=== PATIENT | female | born 1940 | race Caucasian/White ===

== ENCOUNTER 2022-12-18 11:18 | Inpatient (IN) | payer MEDICARE, OTHER ==
[2022-12-18] MEDS ORDERED: Acetaminophen 325 MG TAB PO PRN (17:25)
[2022-12-18] MEDS ORDERED: Ondansetron ODT 4 MG TAB SL PRN (17:35)
[2022-12-18] MEDS ORDERED: oxyCODONE 5 MG TAB PO PRN (17:48)
[2022-12-18] MEDS ORDERED: Nadolol 40 MG TAB PO SCH (21:00)
[2022-12-18] MEDS: Atorvastatin Calcium 10 MG TAB PO SCH (21:04)
[2022-12-18] MEDS: Mirtazapine 15 MG TAB PO PRN (21:04)
[2022-12-18] MEDS: Sertraline 100 MG TAB PO SCH (21:05)
[2022-12-18] MEDS: Famotidine 20 MG TAB PO SCH (21:05)
[2022-12-19 05:14] LABS: #Basophils 0.1 thou/uL (0.0-0.2); #Eosinphils 0.1 thou/uL (0.0-0.7); #Monocytes 0.4 thou/uL (0.11-0.59); #Neutrophils 2.7 thou/uL (1.40-6.50); %Basophils 1.2 % (0.0-1.0); %Eosinophils 2.6 % (0.0-10.0); %Lymphocytes 23.9 % (21.0-51.0); %Monocytes 10.1 % (0.0-10.0); %Neutrophils 62.2 % (42.0-75.0); Hemoglobin 7.2 g/dL (12.0-16.0); Mean Corpuscular HGB CONC 32.7 g/dL (32.0-36.0); Mean Corpuscular Hemoglobin 31.9 pg (27.0-31.0); Mean Corpuscular Volume 97.6 fl (78.0-98.0); Mean Platelet Volume 7.9 fL (7.4-10.4); Platelet Count 167 10x3/uL (130-400); RBC Distribution Width 13.5 % (11.5-14.5); Red Blood Cell (RBC) Count 2.27 mill/uL (4.20-5.40); White Blood Cell (WBC) Count 4.3 10x3/uL (4.8-10.8)
[2022-12-19 05:41] LABS: ALT (SGPT) 38 U/L (8-55); AST (SGOT) 45 U/L (5-34); Albumin 3.1 g/dL (3.4-4.8); Alkaline Phosphatase 68 U/L (40-110); Anion Gap 14 mmol/L (10-20); BUN (Urea Nitrogen) 9 mg/dL (9.8-20.1); Bilirubin, Total 0.4 mg/dL (0.2-1.2); Calc. Creatinine Clearance 54 mL/min (70-130); Calcium 8.7 mg/dL (7.8-10.44); Carbon Dioxide 23 mmol/L (23-31); Chloride 106 mmol/L (98-107); Estimated GFR 86; Globulin 2.3 g/dL (2.4-3.5); Glucose 102 mg/dL (83-110); Potassium 3.9 mmol/L (3.5-5.1); Protein, Total 5.4 g/dL (5.8-8.1); Sodium 139 mmol/L (136-145)
[2022-12-19] MEDS: Levothyroxine Sodium 50 MCG TAB PO SCH (05:55)
[2022-12-19] MEDS: Famotidine 20 MG TAB PO SCH ×2 (07:46→19:54)
[2022-12-19] MEDS: Aspirin 325 MG TAB PO SCH (07:46)
[2022-12-19] MEDS: Nadolol 40 MG TAB PO SCH ×2 (07:54→20:51)
[2022-12-19] MEDS: oxyCODONE 5 MG TAB PO PRN ×2 (09:32→19:52)
[2022-12-19] MEDS: Atorvastatin Calcium 10 MG TAB PO SCH (19:54)
[2022-12-19] MEDS: Mirtazapine 15 MG TAB PO PRN (19:54)
[2022-12-19] MEDS: Sertraline 100 MG TAB PO SCH (19:54)
[2022-12-20] MEDS: Levothyroxine Sodium 50 MCG TAB PO SCH (05:48)
[2022-12-20 06:01] LABS: Mean Corpuscular HGB CONC 31.9 g/dL (32.0-36.0); Mean Corpuscular Hemoglobin 31.5 pg (27.0-31.0); Mean Corpuscular Volume 98.8 fl (78.0-98.0); Platelet Count 251 10x3/uL (130-400); RBC Distribution Width 14.4 % (11.5-14.5); Red Blood Cell (RBC) Count 2.54 mill/uL (4.20-5.40); White Blood Cell (WBC) Count 5.6 10x3/uL (4.8-10.8)
[2022-12-20 06:02] LABS: #Eosinphils 0.2 thou/uL (0.0-0.7); #Lymphocytes 1.3 thou/uL (1.20-3.40); #Monocytes 0.5 thou/uL (0.11-0.59); #Neutrophils 3.5 thou/uL (1.40-6.50); %Basophils 0.8 % (0.0-1.0); %Lymphocytes 23.9 % (21.0-51.0); %Monocytes 9.4 % (0.0-10.0); %Neutrophils 62.9 % (42.0-75.0); Manual Diff?? NO; Mean Platelet Volume 7.3 fL (7.4-10.4)
[2022-12-20 06:17] LABS: Anion Gap 14 mmol/L (10-20); BUN (Urea Nitrogen) 10 mg/dL (9.8-20.1); Calc. Creatinine Clearance 48 mL/min (70-130); Calcium 9.1 mg/dL (7.8-10.44); Carbon Dioxide 24 mmol/L (23-31); Chloride 105 mmol/L (98-107); Estimated GFR 78; Glucose 111 mg/dL (83-110); Potassium 3.9 mmol/L (3.5-5.1); Sodium 139 mmol/L (136-145)
[2022-12-20] MEDS: Ferrous Sulfate 325 MG TAB PO SCH (08:41)
[2022-12-20] MEDS: oxyCODONE 5 MG TAB PO PRN ×2 (08:41→16:31)
[2022-12-20] MEDS: Famotidine 20 MG TAB PO SCH ×2 (08:41→20:11)
[2022-12-20] MEDS: Aspirin 325 MG TAB PO SCH (08:41)
[2022-12-20] MEDS: Nadolol 40 MG TAB PO SCH ×2 (08:41→20:11)
[2022-12-20] MEDS: Sertraline 100 MG TAB PO SCH (20:10)
[2022-12-20] MEDS: Atorvastatin Calcium 10 MG TAB PO SCH (20:12)
[2022-12-20] MEDS: Acetaminophen 325 MG TAB PO PRN (20:12)
[2022-12-21] MEDS: Levothyroxine Sodium 50 MCG TAB PO SCH (05:08)
[2022-12-21 05:47] LABS: Anion Gap 12 mmol/L (10-20); BUN (Urea Nitrogen) 11 mg/dL (9.8-20.1); Calc. Creatinine Clearance 51 mL/min (70-130); Calcium 8.6 mg/dL (7.8-10.44); Carbon Dioxide 24 mmol/L (23-31); Chloride 107 mmol/L (98-107); Estimated GFR 85; Glucose 107 mg/dL (83-110); Potassium 3.8 mmol/L (3.5-5.1); Sodium 139 mmol/L (136-145)
[2022-12-21 05:49] LABS: #Eosinphils 0.1 thou/uL (0.0-0.7); #Lymphocytes 1.1 thou/uL (1.20-3.40); #Monocytes 0.4 thou/uL (0.11-0.59); #Neutrophils 2.6 thou/uL (1.40-6.50); %Basophils 0.8 % (0.0-1.0); %Eosinophils 3.5 % (0.0-10.0); %Lymphocytes 25.3 % (21.0-51.0); %Monocytes 9.5 % (0.0-10.0); Hemoglobin 7.3 g/dL (12.0-16.0); Mean Corpuscular HGB CONC 32.8 g/dL (32.0-36.0); Mean Corpuscular Hemoglobin 31.9 pg (27.0-31.0); Mean Corpuscular Volume 97.5 fl (78.0-98.0); Mean Platelet Volume 7.9 fL (7.4-10.4); Platelet Count 195 10x3/uL (130-400); RBC Distribution Width 13.7 % (11.5-14.5); Red Blood Cell (RBC) Count 2.28 mill/uL (4.20-5.40); White Blood Cell (WBC) Count 4.2 10x3/uL (4.8-10.8)
[2022-12-21] MEDS: Ferrous Sulfate 325 MG TAB PO SCH (08:28)
[2022-12-21] MEDS: Aspirin 325 MG TAB PO SCH (08:29)
[2022-12-21] MEDS: Nadolol 40 MG TAB PO SCH ×2 (08:30→20:22)
[2022-12-21] MEDS: oxyCODONE 5 MG TAB PO PRN ×2 (08:30→23:25)
[2022-12-21] MEDS: Famotidine 20 MG TAB PO SCH ×2 (08:30→20:22)
[2022-12-21] MEDS: Sertraline 100 MG TAB PO SCH (20:21)
[2022-12-21] MEDS: Atorvastatin Calcium 10 MG TAB PO SCH (20:21)
[2022-12-21] MEDS: Acetaminophen 325 MG TAB PO PRN (20:22)
[2022-12-22 05:39] LABS: #Basophils 0.1 thou/uL (0.0-0.2); #Eosinphils 0.2 thou/uL (0.0-0.7); #Lymphocytes 0.9 thou/uL (1.20-3.40); #Monocytes 0.5 thou/uL (0.11-0.59); #Neutrophils 2.3 thou/uL (1.40-6.50); %Basophils 1.4 % (0.0-1.0); %Eosinophils 4.2 % (0.0-10.0); %Lymphocytes 23.5 % (21.0-51.0); %Monocytes 11.8 % (0.0-10.0); %Neutrophils 59.1 % (42.0-75.0); Hemoglobin 7.1 g/dL (12.0-16.0); Mean Corpuscular HGB CONC 31.7 g/dL (32.0-36.0); Mean Corpuscular Hemoglobin 31.4 pg (27.0-31.0); Mean Corpuscular Volume 99.2 fl (78.0-98.0); Mean Platelet Volume 7.9 fL (7.4-10.4); Platelet Count 194 10x3/uL (130-400); RBC Distribution Width 13.9 % (11.5-14.5); Red Blood Cell (RBC) Count 2.25 mill/uL (4.20-5.40); White Blood Cell (WBC) Count 3.9 10x3/uL (4.8-10.8)
[2022-12-22] MEDS: Levothyroxine Sodium 50 MCG TAB PO SCH (06:07)
[2022-12-22] MEDS: Nadolol 40 MG TAB PO SCH ×2 (09:01→20:52)
[2022-12-22] MEDS: Famotidine 20 MG TAB PO SCH ×2 (09:02→20:51)
[2022-12-22] MEDS: Ferrous Sulfate 325 MG TAB PO SCH (09:02)
[2022-12-22] MEDS: Aspirin 325 MG TAB PO SCH (09:02)
[2022-12-22] MEDS: Polyethylene Glycol 3350 17 GM Packet PO PRN (09:03)
[2022-12-22] MEDS: Sertraline 100 MG TAB PO SCH (20:51)
[2022-12-22] MEDS: Atorvastatin Calcium 10 MG TAB PO SCH (20:52)
[2022-12-22] MEDS: Mirtazapine 15 MG TAB PO PRN (20:53)
[2022-12-22] MEDS: oxyCODONE 5 MG TAB PO PRN (22:27)
[2022-12-23] MEDS: Levothyroxine Sodium 50 MCG TAB PO SCH (05:46)
[2022-12-23 06:51] LABS: #Basophils 0.1 thou/uL (0.0-0.2); #Eosinphils 0.2 thou/uL (0.0-0.7); #Lymphocytes 1.1 thou/uL (1.20-3.40); #Monocytes 0.5 thou/uL (0.11-0.59); #Neutrophils 2.7 thou/uL (1.40-6.50); %Basophils 1.2 % (0.0-1.0); %Eosinophils 4.5 % (0.0-10.0); %Lymphocytes 23.4 % (21.0-51.0); %Monocytes 10.7 % (0.0-10.0); %Neutrophils 60.2 % (42.0-75.0); Hemoglobin 7.1 g/dL (12.0-16.0); Mean Corpuscular HGB CONC 31.1 g/dL (32.0-36.0); Mean Corpuscular Hemoglobin 31.3 pg (27.0-31.0); Mean Platelet Volume 7.7 fL (7.4-10.4); Platelet Count 241 10x3/uL (130-400); RBC Distribution Width 15.1 % (11.5-14.5); Red Blood Cell (RBC) Count 2.27 mill/uL (4.20-5.40); White Blood Cell (WBC) Count 4.5 10x3/uL (4.8-10.8)
[2022-12-23 06:54] LABS: Anion Gap 13 mmol/L (10-20); BUN (Urea Nitrogen) 10 mg/dL (9.8-20.1); Calc. Creatinine Clearance 49 mL/min (70-130); Calcium 8.8 mg/dL (7.8-10.44); Carbon Dioxide 24 mmol/L (23-31); Chloride 106 mmol/L (98-107); Estimated GFR 80; Glucose 102 mg/dL (83-110); Potassium 4.3 mmol/L (3.5-5.1); Sodium 139 mmol/L (136-145)
[2022-12-23] MEDS: Nadolol 40 MG TAB PO SCH ×2 (08:11→20:28)
[2022-12-23] MEDS: Aspirin 325 MG TAB PO SCH (08:11)
[2022-12-23] MEDS: Famotidine 20 MG TAB PO SCH ×2 (08:11→20:29)
[2022-12-23] MEDS: Ferrous Sulfate 325 MG TAB PO SCH ×2 (08:12→17:10)
[2022-12-23] MEDS: oxyCODONE 5 MG TAB PO PRN (09:04)
[2022-12-23] MEDS: Atorvastatin Calcium 10 MG TAB PO SCH (20:28)
[2022-12-23] MEDS: Sertraline 100 MG TAB PO SCH (20:29)
[2022-12-23] MEDS: Melatonin 3 MG TAB PO SCH (20:29)
[2022-12-24] MEDS: Levothyroxine Sodium 50 MCG TAB PO SCH (05:38)
[2022-12-24] MEDS: oxyCODONE 5 MG TAB PO PRN (07:55)
[2022-12-24] MEDS: Famotidine 20 MG TAB PO SCH ×2 (07:56→20:37)
[2022-12-24] MEDS: Nadolol 40 MG TAB PO SCH ×2 (07:56→20:35)
[2022-12-24] MEDS: Ferrous Sulfate 325 MG TAB PO SCH ×2 (07:57→16:43)
[2022-12-24] MEDS: Aspirin 325 MG TAB PO SCH (07:57)
[2022-12-24] MEDS: Melatonin 3 MG TAB PO SCH (20:36)
[2022-12-24] MEDS: Sertraline 100 MG TAB PO SCH (20:37)
[2022-12-24] MEDS: Atorvastatin Calcium 10 MG TAB PO SCH (20:37)
[2022-12-25 06:04] LABS: #Basophils 0.1 thou/uL (0.0-0.2); #Eosinphils 0.2 thou/uL (0.0-0.7); #Monocytes 0.4 thou/uL (0.11-0.59); #Neutrophils 3.3 thou/uL (1.40-6.50); %Eosinophils 3.7 % (0.0-10.0); %Lymphocytes 19.6 % (21.0-51.0); %Monocytes 8.1 % (0.0-10.0); %Neutrophils 67.6 % (42.0-75.0); Hemoglobin 7.4 g/dL (12.0-16.0); Mean Corpuscular HGB CONC 31.9 g/dL (32.0-36.0); Mean Corpuscular Hemoglobin 32.1 pg (27.0-31.0); Mean Platelet Volume 7.4 fL (7.4-10.4); Platelet Count 272 10x3/uL (130-400); RBC Distribution Width 16.1 % (11.5-14.5); Red Blood Cell (RBC) Count 2.29 mill/uL (4.20-5.40); White Blood Cell (WBC) Count 4.9 10x3/uL (4.8-10.8)
[2022-12-25 06:16] LABS: Anion Gap 12 mmol/L (10-20); BUN (Urea Nitrogen) 13 mg/dL (9.8-20.1); Calc. Creatinine Clearance 48 mL/min (70-130); Calcium 8.8 mg/dL (7.8-10.44); Carbon Dioxide 23 mmol/L (23-31); Chloride 109 mmol/L (98-107); Estimated GFR 78; Glucose 107 mg/dL (83-110); Potassium 4.2 mmol/L (3.5-5.1); Sodium 140 mmol/L (136-145)
[2022-12-25] MEDS: Levothyroxine Sodium 50 MCG TAB PO SCH (06:16)
[2022-12-25] MEDS: Famotidine 20 MG TAB PO SCH ×2 (08:42→20:56)
[2022-12-25] MEDS: Aspirin 325 MG TAB PO SCH (08:43)
[2022-12-25] MEDS: Nadolol 40 MG TAB PO SCH (08:43)
[2022-12-25] MEDS: Ferrous Sulfate 325 MG TAB PO SCH ×2 (08:43→17:34)
[2022-12-25] MEDS: Ergocalciferol 1.25 MG(50,000 UNITS) CAP PO SCH (08:44)
[2022-12-25] MEDS: oxyCODONE 5 MG TAB PO PRN (08:44)
[2022-12-25] MEDS: Acetaminophen 325 MG TAB PO PRN (13:19)
[2022-12-25] MEDS: Polyethylene Glycol 3350 17 GM Packet PO PRN (15:10)
[2022-12-25] MEDS ORDERED: Ibuprofen 200 MG TAB PO SCH (15:15)
[2022-12-25] MEDS: Melatonin 3 MG TAB PO SCH (20:56)
[2022-12-25] MEDS: Sertraline 100 MG TAB PO SCH (20:56)
[2022-12-25] MEDS: Atorvastatin Calcium 10 MG TAB PO SCH (20:56)
[2022-12-26] MEDS: Acetaminophen 325 MG TAB PO PRN ×2 (02:20→20:31)
[2022-12-26] MEDS: Levothyroxine Sodium 50 MCG TAB PO SCH (05:46)
[2022-12-26] MEDS: oxyCODONE 5 MG TAB PO PRN ×2 (08:28→15:18)
[2022-12-26] MEDS: Nadolol 40 MG TAB PO SCH (08:29)
[2022-12-26] MEDS: Ferrous Sulfate 325 MG TAB PO SCH ×2 (08:29→17:06)
[2022-12-26] MEDS: Aspirin 325 MG TAB PO SCH (08:29)
[2022-12-26] MEDS: Famotidine 20 MG TAB PO SCH ×2 (08:29→20:30)
[2022-12-26] MEDS: Sertraline 100 MG TAB PO SCH (20:30)
[2022-12-26] MEDS: Atorvastatin Calcium 10 MG TAB PO SCH (20:30)
[2022-12-26] MEDS: Melatonin 3 MG TAB PO SCH (20:36)
[2022-12-27] MEDS: Levothyroxine Sodium 50 MCG TAB PO SCH (05:20)
[2022-12-27] MEDS: Acetaminophen 325 MG TAB PO PRN (07:30)
[2022-12-27] MEDS: Famotidine 20 MG TAB PO SCH ×2 (07:54→20:44)
[2022-12-27] MEDS: Aspirin 325 MG TAB PO SCH (07:54)
[2022-12-27] MEDS: Ferrous Sulfate 325 MG TAB PO SCH ×2 (07:55→16:52)
[2022-12-27] MEDS: Nadolol 40 MG TAB PO SCH (08:05)
[2022-12-27] MEDS: Atorvastatin Calcium 10 MG TAB PO SCH (20:44)
[2022-12-27] MEDS: Sertraline 100 MG TAB PO SCH (20:44)
[2022-12-27] MEDS: Melatonin 3 MG TAB PO SCH (20:48)
[2022-12-28 05:30] LABS: #Basophils 0.1 thou/uL (0.0-0.2); #Eosinphils 0.3 thou/uL (0.0-0.7); #Lymphocytes 0.9 thou/uL (1.20-3.40); #Monocytes 0.4 thou/uL (0.11-0.59); #Neutrophils 3.5 thou/uL (1.40-6.50); %Basophils 1.2 % (0.0-1.0); %Eosinophils 6.1 % (0.0-10.0); %Monocytes 7.7 % (0.0-10.0); %Neutrophils 68.1 % (42.0-75.0); Hemoglobin 8.3 g/dL (12.0-16.0); Mean Corpuscular HGB CONC 31.3 g/dL (32.0-36.0); Mean Corpuscular Hemoglobin 32.2 pg (27.0-31.0); Mean Platelet Volume 7.4 fL (7.4-10.4); Platelet Count 306 10x3/uL (130-400); Red Blood Cell (RBC) Count 2.56 mill/uL (4.20-5.40); White Blood Cell (WBC) Count 5.1 10x3/uL (4.8-10.8)
[2022-12-28 05:43] LABS: Anion Gap 16 mmol/L (10-20); BUN (Urea Nitrogen) 16 mg/dL (9.8-20.1); Calc. Creatinine Clearance 48 mL/min (70-130); Calcium 9.2 mg/dL (7.8-10.44); Carbon Dioxide 22 mmol/L (23-31); Chloride 106 mmol/L (98-107); Estimated GFR 78; Glucose 101 mg/dL (83-110); Potassium 4.3 mmol/L (3.5-5.1); Sodium 140 mmol/L (136-145)
[2022-12-28] MEDS: Levothyroxine Sodium 50 MCG TAB PO SCH (06:49)
[2022-12-28] MEDS: Aspirin 325 MG TAB PO SCH (08:50)
[2022-12-28] MEDS: Nadolol 40 MG TAB PO SCH (08:50)
[2022-12-28] MEDS: Ferrous Sulfate 325 MG TAB PO SCH ×2 (08:50→16:23)
[2022-12-28] MEDS: Famotidine 20 MG TAB PO SCH ×2 (08:50→20:57)
[2022-12-28] MEDS: oxyCODONE 5 MG TAB PO PRN ×2 (11:02→20:58)
[2022-12-28] MEDS: Sertraline 100 MG TAB PO SCH (20:55)
[2022-12-28] MEDS: Atorvastatin Calcium 10 MG TAB PO SCH (20:55)
[2022-12-28] MEDS: Melatonin 3 MG TAB PO SCH (20:59)
[2022-12-29] MEDS: Levothyroxine Sodium 50 MCG TAB PO SCH (06:19)
[2022-12-29] MEDS: Aspirin 325 MG TAB PO SCH (08:02)
[2022-12-29] MEDS: Nadolol 40 MG TAB PO SCH (08:02)
[2022-12-29] MEDS: Ferrous Sulfate 325 MG TAB PO SCH ×2 (08:03→16:33)
[2022-12-29] MEDS: Famotidine 20 MG TAB PO SCH ×2 (08:03→20:04)
[2022-12-29] MEDS: Melatonin 3 MG TAB PO SCH (20:04)
[2022-12-29] MEDS: Sertraline 100 MG TAB PO SCH (20:04)
[2022-12-29] MEDS: Atorvastatin Calcium 10 MG TAB PO SCH (20:05)
[2022-12-30] MEDS: Levothyroxine Sodium 50 MCG TAB PO SCH (06:11)
[2022-12-30] MEDS: Acetaminophen 325 MG TAB PO PRN (06:11)
[2022-12-30] MEDS: Aspirin 325 MG TAB PO SCH (08:12)
[2022-12-30] MEDS: oxyCODONE 5 MG TAB PO PRN ×3 (08:12→21:08)
[2022-12-30] MEDS: Famotidine 20 MG TAB PO SCH ×2 (08:12→21:09)
[2022-12-30] MEDS: Ferrous Sulfate 325 MG TAB PO SCH ×2 (08:12→17:00)
[2022-12-30] MEDS: Nadolol 40 MG TAB PO SCH (08:13)
[2022-12-30] MEDS: Melatonin 3 MG TAB PO SCH (21:09)
[2022-12-30] MEDS: Atorvastatin Calcium 10 MG TAB PO SCH (21:09)
[2022-12-30] MEDS: Sertraline 100 MG TAB PO SCH (21:09)
[2022-12-31] MEDS: oxyCODONE 5 MG TAB PO PRN (06:04)
[2022-12-31 06:05] LABS: #Basophils 0.1 thou/uL (0.0-0.2); #Eosinphils 0.3 thou/uL (0.0-0.7); #Monocytes 0.4 thou/uL (0.11-0.59); #Neutrophils 2.1 thou/uL (1.40-6.50); %Basophils 2.1 % (0.0-1.0); %Eosinophils 7.8 % (0.0-10.0); %Lymphocytes 24.9 % (21.0-51.0); %Monocytes 10.6 % (0.0-10.0); %Neutrophils 54.5 % (42.0-75.0); Hemoglobin 8.5 g/dL (12.0-16.0); Mean Corpuscular HGB CONC 30.9 g/dL (32.0-36.0); Mean Corpuscular Hemoglobin 32.3 pg (27.0-31.0); Mean Platelet Volume 7.4 fL (7.4-10.4); Platelet Count 249 10x3/uL (130-400); RBC Distribution Width 15.9 % (11.5-14.5); Red Blood Cell (RBC) Count 2.64 mill/uL (4.20-5.40); White Blood Cell (WBC) Count 3.9 10x3/uL (4.8-10.8)
[2022-12-31] MEDS: Levothyroxine Sodium 50 MCG TAB PO SCH (06:05)
[2022-12-31 06:20] LABS: Anion Gap 14 mmol/L (10-20); BUN (Urea Nitrogen) 14 mg/dL (9.8-20.1); Calc. Creatinine Clearance 45 mL/min (70-130); Carbon Dioxide 23 mmol/L (23-31); Chloride 105 mmol/L (98-107); Estimated GFR 75; Glucose 93 mg/dL (83-110); Potassium 4.4 mmol/L (3.5-5.1); Sodium 138 mmol/L (136-145)
[2022-12-31] MEDS: Famotidine 20 MG TAB PO SCH ×2 (07:51→20:47)
[2022-12-31] MEDS: Nadolol 40 MG TAB PO SCH (07:51)
[2022-12-31] MEDS: Aspirin 325 MG TAB PO SCH (07:52)
[2022-12-31] MEDS: Ferrous Sulfate 325 MG TAB PO SCH ×2 (07:52→17:07)
[2022-12-31] MEDS: Melatonin 3 MG TAB PO SCH (20:47)
[2022-12-31] MEDS: Sertraline 100 MG TAB PO SCH (20:47)
[2022-12-31] MEDS: Atorvastatin Calcium 10 MG TAB PO SCH (20:47)
[2023-01-01] MEDS: oxyCODONE 5 MG TAB PO PRN (02:42)
[2023-01-01] MEDS: Levothyroxine Sodium 50 MCG TAB PO SCH (05:59)
[2023-01-01] MEDS: Aspirin 325 MG TAB PO SCH (08:02)
[2023-01-01] MEDS: Ferrous Sulfate 325 MG TAB PO SCH ×2 (08:02→17:00)
[2023-01-01] MEDS: Famotidine 20 MG TAB PO SCH ×2 (08:02→20:43)
[2023-01-01] MEDS: Nadolol 40 MG TAB PO SCH (08:02)
[2023-01-01] MEDS: Ergocalciferol 1.25 MG(50,000 UNITS) CAP PO SCH (08:03)
[2023-01-01] MEDS: Acetaminophen 325 MG TAB PO PRN (15:00)
[2023-01-01] MEDS: Sertraline 100 MG TAB PO SCH (20:43)
[2023-01-01] MEDS: Melatonin 3 MG TAB PO SCH (20:43)
[2023-01-01] MEDS: Atorvastatin Calcium 10 MG TAB PO SCH (20:43)
[2023-01-02] MEDS: Levothyroxine Sodium 50 MCG TAB PO SCH (05:32)
[2023-01-02] MEDS: Acetaminophen 325 MG TAB PO PRN (07:20)
[2023-01-02] MEDS: Aspirin 325 MG TAB PO SCH (07:56)
[2023-01-02] MEDS: Nadolol 40 MG TAB PO SCH (07:56)
[2023-01-02] MEDS: Famotidine 20 MG TAB PO SCH ×2 (07:56→21:22)
[2023-01-02] MEDS: Ferrous Sulfate 325 MG TAB PO SCH ×2 (07:56→16:43)
[2023-01-02 13:58] VITALS: BMI 21.7
[2023-01-02] MEDS: Sertraline 100 MG TAB PO SCH (21:22)
[2023-01-02] MEDS: Melatonin 3 MG TAB PO SCH (21:22)
[2023-01-02] MEDS: Atorvastatin Calcium 10 MG TAB PO SCH (21:22)
[2023-01-03] MEDS: Levothyroxine Sodium 50 MCG TAB PO SCH (05:28)
[2023-01-03 07:57] VITALS: TEMP 98.1
[2023-01-03] MEDS: Aspirin 325 MG TAB PO SCH (08:23)
[2023-01-03] MEDS: Famotidine 20 MG TAB PO SCH (08:23)
[2023-01-03] MEDS: Acetaminophen 325 MG TAB PO PRN (08:30)
[2023-01-03] MEDS: Ferrous Sulfate 325 MG TAB PO SCH (08:30)
[2023-01-03] MEDS: Nadolol 40 MG TAB PO SCH (10:41)
[2023-01-03 10:44] VITALS: BP 126/64
== END 2023-01-03 11:00 | disposition home health service (06) | DRG 560 ==
LOC: NAV ACUTE 14:20
PROVIDERS: ADMIT Family Medicine; ATTEND Family Medicine
DX: S72.001D Fracture of unspecified part of neck of right femur, subsequent encounter for closed fracture with routine healing (principal); D62 Acute posthemorrhagic anemia; I47.1 Supraventricular tachycardia; I10 Essential (primary) hypertension; E55.9 Vitamin D deficiency, unspecified; E78.5 Hyperlipidemia, unspecified; F41.9 Anxiety disorder, unspecified; F32.A Depression, unspecified; E03.9 Hypothyroidism, unspecified; F03.90 Unspecified dementia, unspecified severity, without behavioral disturbance, psychotic disturbance, mood disturbance, and anxiety; R53.81 Other malaise; I95.9 Hypotension, unspecified; G47.00 Insomnia, unspecified; Z96.641 Presence of right artificial hip joint; Z90.710 Acquired absence of both cervix and uterus; Z82.49 Family history of ischemic heart disease and other diseases of the circulatory system; Z88.8 Allergy status to other drugs, medicaments and biological substances; Z79.82 Long term (current) use of aspirin; Z79.899 Other long term (current) drug therapy; Z79.890 Hormone replacement therapy
CPT/HCPCS: 36415; 80048; 80053; 85025; J1650